=== PATIENT | female | born 1955 | race Caucasian/White ===

== ENCOUNTER → 2016-08-18 | Outpatient (CLI) | payer OTHER ==
[~2016-08-18] MED LIST: CALC0.5C17 PO; CALCTAB7 PO; HYDR-4380 PO; METO-217 PO; PRLSR20 PO; RCL25 PO; SYN125 PO
[2016-08-18 17:53] LABS: THYROID STIMULATING HORMONE 2.74 uIu/ml (0.300-4.500)
== END | disposition home or self-care (01) ==
LOC: C.LABPVFM 14:05
PROVIDERS: ATTEND Internal Medicine Endocrinology, Diabetes & Metabolism
DX: E05.00 Thyrotoxicosis with diffuse goiter without thyrotoxic crisis or storm (principal)